=== PATIENT | male | born 1965 | race Caucasian/White ===

== ENCOUNTER 2020-09-21 15:36 | Emergency (ER) | payer BC ==
[~2020-09-21] VITALS: Ht 177.8 cm; Wt 140.6 kg
[2020-09-21] MEDS ORDERED: PROMETH-CODEIN 65 ML PO (16:22)
[2020-09-21] MEDS ORDERED: ZPAK PO (16:22)
[2020-09-21] MEDS ORDERED: VENTOLIN HFA 1818 GM INH (16:22)
[2020-09-21] MEDS ORDERED: PREDNISONE 20 M20 M1 PO (16:22)
[2020-09-21 17:28] VITALS: BP 184/75
== END 2020-09-21 17:00 | disposition home or self-care (01) ==
LOC: M.ERS 15:36
DX: U07.1 COVID-19 (principal); I10 Essential (primary) hypertension